=== PATIENT | female | born 1950 | race Caucasian/White ===

== ENCOUNTER 2021-07-21 18:16 | Inpatient (IN) ==
[2021-07-21] MEDS ORDERED: 0.9 % Sodium Chloride 1,000 ML IV ONE ×2 (18:25→20:54)
[2021-07-21] MEDS ORDERED: Isovue-370 500 ML BOTTLE IVP ONE (18:26)
[2021-07-21] MEDS ORDERED: Ondansetron 4 MG/2 ML VIAL IVP ONE (18:27)
[2021-07-21 18:52] LABS: Basophils # 0.1 K/mcL (0.0-0.2); Basophils % 0.4 %; Eosinophils # 0.3 K/mcL (0.0-0.6); Eosinophils % 2.3 %; Hematocrit 38.5 % (35.3-44.9); Immature Granulocytes % 0.8 % (0-4); Lymphocytes # 1.5 K/mcL (0.6-4.6); Lymphocytes % 12.4 %; Mean Corpuscular HGB Conc 31.2 g/dL (31.6-35.5); Mean Corpuscular Hemoglobin 24.8 pg (28.0-33.3); Mean Corpuscular Volume 79.5 fL (83.0-100.0); Mean Platelet Volume 9.6 fL (9.4-12.4); Monocytes # 0.4 K/mcL (0.0-1.3); Monocytes % 3.3 %; Neutrophils # 9.7 K/mcL (1.6-8.9); Platelet Count 633 K/mcL (140-400); Red Blood Count 4.84 M/mcL (3.82-4.97); Red Cell Distribution Width 14.5 % (11.5-14.5); Segmented Neutrophils % 80.8 %
[2021-07-21 19:14] LABS: Alanine Aminotransferase 10 Units/L (7-52); Albumin 3.9 g/dL (3.5-5.7); Albumin/Globulin Ratio 1.1 (1.1-2.2); Alkaline Phosphatase 180 Units/L (34-104); Amylase 207 Units/L (29-103); Aspartate Amino Transferase 17 Units/L (13-39); BUN/Creatinine Ratio 14 (6-26); Bilirubin,Total 0.6 mg/dL (0.3-1.0); Blood Urea Nitrogen 23 mg/dL (8-23); Calcium 9.7 mg/dL (8.6-10.3); Carbon Dioxide 22 mEq/L (23-29); Chloride 100 mEq/L (98-107); Globulin 3.6 g/dL (2.4-3.5); Glucose 244 mg/dL (70-105); Lipase 38 Units/L (11-82); Osmolality,Calculated 298 (280-300); Potassium 2.9 mEq/L (3.5-5.1); Sodium 138 mEq/L (136-145); Total Protein 7.5 g/dL (6.4-8.9); Troponin I < 0.03 ng/mL (< 0.04); eGFR For African Americans 36 (> 60); eGFR For Non-African Americans 30 (> 60)
[2021-07-21 19:23] LABS: Bacteria,Urine Few per hpf (None-Few); Bilirubin,Urine Negative (Negative); Blood,Urine Negative (Negative); Clarity,Urine Clear (Clear); Color,Urine Yellow (Yellow); Glucose,Urine (UA) Normal (Normal); Hyaline Casts,Urine Few per lpf (None Seen); Ketones,Urine Negative (Negative); Leukocyte Esterase,Urine Negative (Negative); Mucus,Urine Few per lpf (None-Few); Nitrite,Urine Negative (Negative); PH,Urine 5.5 pH Units (5.0-8.0); Protein,Urine 30 mg/dL (Neg-Trace); RBC,Urine 0-3 per hpf (0-3); Specific Gravity,Urine 1.018 (1.010-1.025); Squamous Epithelial Cell,Urine Few per hpf (None-Few); Urobilinogen,Urine Normal (Normal); WBC,Urine 0-3 per hpf (0-3)
[2021-07-21] MEDS ORDERED: MetroNIDAZOLE 500 MG/100 ML 500 MG/100 ML BAG IVPB ONE (20:54)
[2021-07-21] MEDS ORDERED: Ondansetron 4 MG/2 ML VIAL IVP PRN (21:36)
[2021-07-21] MEDS ORDERED: Naloxone 0.4 MG/ML INJ IVP PRN (21:36)
[2021-07-21] MEDS ORDERED: *HR* Dextrose 50 % in Water (Syg) 50 ML SYRINGE IVP PRN (21:43)
[2021-07-21] MEDS ORDERED: D5% in Water 1,000 ML IVC PRN (21:43)
[2021-07-21] MEDS ORDERED: Dextrose Gel 15 GM/37.5 ML TUBE PO PRN ×2 (21:43)
[2021-07-21] MEDS: 0.9 % Sodium Chloride 1,000 ML IVC SCH (23:45)
[2021-07-22] MEDS: MetroNIDAZOLE 500 MG/100 ML 500 MG/100 ML BAG IVPB SCH ×4 (01:15→23:49)
[2021-07-22 02:48] LABS: Basophils % 0.1 %; Eosinophils % 0.1 %; Hemoglobin 10.1 g/dL (11.5-15.4); Immature Granulocytes % 0.6 % (0-4); Lymphocytes # 0.7 K/mcL (0.6-4.6); Lymphocytes % 4.2 %; Mean Corpuscular HGB Conc 30.6 g/dL (31.6-35.5); Mean Corpuscular Hemoglobin 24.8 pg (28.0-33.3); Mean Corpuscular Volume 80.9 fL (83.0-100.0); Mean Platelet Volume 9.8 fL (9.4-12.4); Monocytes # 0.4 K/mcL (0.0-1.3); Monocytes % 2.6 %; Neutrophils # 15.9 K/mcL (1.6-8.9); Platelet Count 403 K/mcL (140-400); Red Blood Count 4.08 M/mcL (3.82-4.97); Red Cell Distribution Width 14.6 % (11.5-14.5); Segmented Neutrophils % 92.4 %; White Blood Count 17.2 K/mcL (4.3-11.1)
[2021-07-22 03:21] LABS: Calcium 8.6 mg/dL (8.6-10.3); Magnesium 1.8 mg/dL (1.6-2.6); Potassium 3.1 mEq/L (3.5-5.1)
[2021-07-22] MEDS: Insulin LISPRO 300 UNITS/3 ML VIAL SUBQ SCH ×3 (08:53→17:43)
[2021-07-22 10:59] LABS: Estimated Average Glucose 137 mg/dl; Hemoglobin A1C 6.4 %
[2021-07-22] MEDS: Potassium Chloride Elixir 20 MEQ/15 ML UDC PO ONE ×2 (15:07→21:43)
[2021-07-22] MEDS: carvediloL 6.25 MG TABLET PO SCH (15:36)
[2021-07-22] MEDS: Pantoprazole 40 MG VIAL IVP SCH (15:36)
[2021-07-22] MEDS: amLODIPine 5 MG TABLET PO SCH (17:27)
[2021-07-22] MEDS ORDERED: Insulin LISPRO 300 UNITS/3 ML VIAL SUBQ SCH (21:00)
[2021-07-22] MEDS ORDERED: Potassium Chloride Elixir 20 MEQ/15 ML UDC PO ONE (21:18)
[2021-07-22] MEDS: 0.9 % Sodium Chloride 1,000 ML IVC SCH (21:53)
[2021-07-23 06:07] LABS: Basophils % 0.3 %; Eosinophils # 0.1 K/mcL (0.0-0.6); Eosinophils % 1.2 %; Hematocrit 28.1 % (35.3-44.9); Hemoglobin 8.6 g/dL (11.5-15.4); Immature Granulocytes % 0.5 % (0-4); Lymphocytes # 1.1 K/mcL (0.6-4.6); Lymphocytes % 12.2 %; Mean Corpuscular HGB Conc 30.6 g/dL (31.6-35.5); Mean Corpuscular Hemoglobin 24.6 pg (28.0-33.3); Mean Corpuscular Volume 80.5 fL (83.0-100.0); Mean Platelet Volume 9.5 fL (9.4-12.4); Monocytes # 0.4 K/mcL (0.0-1.3); Monocytes % 4.9 %; Neutrophils # 7.2 K/mcL (1.6-8.9); Platelet Count 307 K/mcL (140-400); Red Blood Count 3.49 M/mcL (3.82-4.97); Red Cell Distribution Width 14.6 % (11.5-14.5); Segmented Neutrophils % 80.9 %; White Blood Count 8.8 K/mcL (4.3-11.1)
[2021-07-23 07:03] LABS: Alanine Aminotransferase 7 Units/L (7-52); Albumin 3.2 g/dL (3.5-5.7); Albumin/Globulin Ratio 1.2 (1.1-2.2); Alkaline Phosphatase 69 Units/L (34-104); Aspartate Amino Transferase 10 Units/L (13-39); BUN/Creatinine Ratio 14 (6-26); Bilirubin,Total 0.5 mg/dL (0.3-1.0); Blood Urea Nitrogen 14 mg/dL (8-23); Calcium 8.7 mg/dL (8.6-10.3); Carbon Dioxide 24 mEq/L (23-29); Chloride 102 mEq/L (98-107); Globulin 2.7 g/dL (2.4-3.5); Glucose 169 mg/dL (70-105); Osmolality,Calculated 284 (280-300); Potassium 3.2 mEq/L (3.5-5.1); Sodium 135 mEq/L (136-145); Total Protein 5.9 g/dL (6.4-8.9); eGFR For African Americans > 60 (> 60); eGFR For Non-African Americans 53 (> 60)
[2021-07-23 08:10] VITALS: O2SAT 93
[2021-07-23] MEDS: amLODIPine 5 MG TABLET PO SCH (08:34)
[2021-07-23] MEDS: Insulin LISPRO 300 UNITS/3 ML VIAL SUBQ SCH ×2 (08:34→13:12)
[2021-07-23] MEDS: carvediloL 6.25 MG TABLET PO SCH (08:35)
[2021-07-23] MEDS: Pantoprazole 40 MG VIAL IVP SCH (08:36)
[2021-07-23] MEDS: MetroNIDAZOLE 500 MG/100 ML 500 MG/100 ML BAG IVPB SCH (08:37)
[2021-07-23] MEDS ORDERED: amLODIPine 5 MG TABLET PO SCH (09:00)
[2021-07-23] MEDS ORDERED: NON-FORMULARY MEDICATION 1 EACH EACH (Amlodipine Besylate 10 MG Tablet) PO SCH (09:00)
[2021-07-23 11:33] VITALS: BP 150/74; PULSE 80; TEMP 97.6
[2021-07-23] MEDS ORDERED: Potassium Chloride Elixir 20 MEQ/15 ML UDC PO ONE (13:21)
[2021-07-23 13:42] LABS: Hematocrit 29.5 % (35.3-44.9)
[2021-07-23 17:16] LABS: % Iron Saturation 7 % (15-50); Iron 18 mcg/dL (50-170); Transferrin 189 mg/dL (203-362)
[2021-07-23 17:55] LABS: Ferritin 47 ng/mL (10-120)
[2021-07-23] MEDS ORDERED: Pantoprazole 40 MG VIAL IVP SCH (18:00)
== END 2021-07-23 15:30 | disposition left against medical advice (07) | DRG 392 ==
LOC: EMEROOARM 18:16 → 3BNU 18:16
PROVIDERS: ADMIT Internal Medicine; ATTEND Internal Medicine